=== PATIENT | female | born 1965 | race Caucasian/White ===

== ENCOUNTER 2016-10-07 05:18 | Inpatient (IN) | payer BC ==
[2016-10-06 09:05] VITALS: BMI 24.2
[~2016-10-07] VITALS: Ht 157.5 cm; Wt 60.0 kg
[2016-10-07] VITALS (21 sets, daily range): BP systolic 98–146; BP diastolic 57–88; PULSE 66–100; RESP 12–20; Ht 157.5 cm; Wt 60.0 kg
[~2016-10-07 05:18] MED LIST: ASPI81TA3 PO; DOXY100T20 PO; ESTR1PAT88 TOP; HYDR-3612 PO; OXYC-183; PROG100C5 PO; RIZA5TAB30 PO
[2016-10-07] MEDS ORDERED: DEXAMETHASONE 1 MG TAB PO SCH (06:00)
[2016-10-07] MEDS ORDERED: BUPIVACAINE 0.5% (SDV) 30 ML, morphine SULFATE (PF) 8 MG, EPINEPHrine 0.3 MG, KETOROLAC... IRR SCH ×7 (06:00)
[2016-10-07] MEDS ORDERED: traMADol 50 MG TAB PO SCH (06:00)
[2016-10-07] MEDS ORDERED: SOD CHLORIDE 0.9% 100 ML, TRANEXAMIC ACID 3,000 MG IRR SCH ×2 (06:00)
[2016-10-07] MEDS ORDERED: TRANEXAMIC ACID 1,000 MG in SOD CHLORIDE 0.9% 100 ML IVPB SCH (06:00)
[2016-10-07] MEDS ORDERED: CEFAZOLIN 2 GM/50 ML (PMX) 50 ML IVPB SCH (06:00)
[2016-10-07] MEDS ORDERED: GABAPENTIN 300 MG CAP PO SCH ×2 (06:00→21:00)
[2016-10-07] MEDS ORDERED: TOPI25CA PO (06:17)
[2016-10-07] MEDS ORDERED: THROMBIN 5000 UNIT VIAL ONE (06:38)
[2016-10-07] MEDS ORDERED: POLYMYXIN/BACITRACIN 1L IRRIG ONE (06:38)
[2016-10-07] MEDS ORDERED: CA CHLORIDE 10% 10 ML SYRINGE ONE (06:38)
[2016-10-07] MEDS ORDERED: LACTATED RINGER'S 1,000 ML IV* SCH (06:45)
--- NOTE | 2016-10-07 06:54 | HPN ---
Date/Time of Note Date/Time of Note DATE: 10/07/16 TIME: 06:54 Interval H&P Admission Note Pt. seen H&P reviewed: No system changes MARLYN GABRIEL MD Oct 07, 2016 06:54
[2016-10-07] MEDS ORDERED: GLYCOPYRROLATE 0.4 MG INJ ONE (06:57)
[2016-10-07] MEDS ORDERED: MIDAZOLAM 1 MG/ML 2 ML INJ ONE (06:57)
[2016-10-07] MEDS ORDERED: ONDANSETRON 4 MG INJ ONE (06:57)
[2016-10-07] MEDS ORDERED: DEXAMETHASONE 4 MG/ML 1 ML INJ ONE (06:57)
[2016-10-07] MEDS ORDERED: PROPOFOL 20 ML ONE (06:57)
[2016-10-07] MEDS ORDERED: FENTAnyl 50 MCG/ML VIAL ONE (06:57)
[2016-10-07] MEDS ORDERED: CEFAZOLIN 1 GM INJ ONE (06:57)
[2016-10-07] MEDS ORDERED: NEOSTIGMINE 3 MG/3 ML SYRINGE ONE (06:57)
[2016-10-07] MEDS ORDERED: ROCURONIUM 50 MG INJ ONE (06:57)
[2016-10-07] MEDS ORDERED: morphine SULFATE/PF (10 MG/10 ML) INJ ONE (06:58)
[2016-10-07] MEDS ORDERED: LABETALOL HCL 20MG INJ IV PRN (08:00)
[2016-10-07] MEDS ORDERED: ZOLPIDEM 5 MG TAB PO PRN ×2 (08:00→09:00)
[2016-10-07] MEDS ORDERED: EPHEDrine SULFATE 50 MG/5 ML SYG IV PRN (08:00)
[2016-10-07] MEDS ORDERED: hydrALAzine 20 MG INJ IV PRN (08:00)
[2016-10-07] MEDS ORDERED: NALBUPHINE HCL (10 MG/1 ML) INJ IV PRN (08:00)
[2016-10-07] MEDS ORDERED: NALOXONE (0.4 MG/ML) INJ IV PRN (08:00)
[2016-10-07] MEDS ORDERED: morphine (1 MG/ML) 10ML SYRINGE IV PRN ×3 (08:00)
[2016-10-07] MEDS ORDERED: morphine 2 MG INJ IV PRN ×2 (08:00→09:00)
[2016-10-07] MEDS ORDERED: MIDAZOLAM 1 MG/ML 2 ML INJ IV PRN (08:00)
[2016-10-07] MEDS ORDERED: DIPHENHYDRAMINE 50 MG INJ IV PRN ×3 (08:00→09:00)
[2016-10-07] MEDS ORDERED: TRIMETHOBENZAMIDE 100 MG/ML VIAL IM PRN ×2 (08:00)
[2016-10-07] MEDS ORDERED: morphine 4 MG/ML VIAL IV PRN ×2 (08:00→09:00)
[2016-10-07] MEDS ORDERED: OXYCODONE/ACETAMINOPHEN (5/325) TAB PO PRN ×3 (08:00→09:00)
[2016-10-07] MEDS ORDERED: MEPERIDINE 25 MG INJ IV PRN (08:00)
[2016-10-07] MEDS ORDERED: ONDANSETRON 4 MG INJ IV PRN ×2 (08:00→09:00)
[2016-10-07] MEDS ORDERED: FENTAnyl 50 MCG/ML VIAL IV PRN ×3 (08:00)
[2016-10-07] MEDS ORDERED: PROPOFOL 100 ML ONE (08:01)
[2016-10-07] MEDS ORDERED: ETOMIDATE 20 MG INJ ONE (08:01)
[2016-10-07] MEDS ORDERED: BETHANECHOL 25 MG TAB PO PRN (09:00)
[2016-10-07] MEDS ORDERED: TOPIRAMATE SPRINKLE 25 MG CAP PO SCH (09:00)
[2016-10-07] MEDS ORDERED: ACETAMINOPHEN 500 MG TAB PO PRN (09:00)
[2016-10-07] MEDS ORDERED: MAGNESIUM HYDROXIDE 30ML CUP PO PRN (09:00)
[2016-10-07] MEDS ORDERED: KETOROLAC 15 MG INJ IV PRN (09:00)
--- NOTE | 2016-10-07 09:02 | OPR ---
Date/Time of Note Date/Time of Note DATE: 10/07/16 TIME: 08:57 Operative Report Procedure Date: Oct 07, 2016 Preoperative Diagnosis Right hip primary arthritis Postoperative Diagnosis Right hip primary arthritis Operation Performed Right total hip arthroplasty Surgeon: MARLYN GABRIEL MD Foil Spinner: TAL FLORES MD Anesthesia: general Estimated Blood Loss: 150 - 200 ml's Complications: None Pt Condition Post Procedure: stable Disposition: PACU Procedure Description MATH PROFESSOR SURGEON: Dr. Flores was asked to be present at my request as a result of the significant surgical complexity associated with this procedure including positioning of the extremity, manipulation and protection of the neurovascular structures. In my opinion, the assistance offered by a certified surgical first assistant is insufficient and Dr. Flores should be compensated for her time. PROCEDURE IN DETAIL: Following the administration of general anesthesia supplemented with a spinal, the patient was placed in the supine position. A Cowan catheter was placed sterilely. The bilateral lower extremities then prepped and draped in the usual sterile fashion. A longitudinal incision was then made over the tensor the tensor was incised and retracted laterally. The anterior capsule was then exposed and a capsulectomy was then performed. Severe arthritic changes were noted throughout. A capsulectomy was then performed followed by an osteotomy of the femoral head in the appropriate degree of version and inclination. The acetabulum was then exposed and a capsulectomy was completed. The middle portion of the acetabulum was then reamed and prepared a 49 mm reamer was used as a final reaming. A 50 mm [place] cup was then inserted with very solid fixation. A standard liner was then applied. Attention was then directed to the femur the femur was prepared and serially reamed up to the 8 mm size. An 8 mm [place] stem was then inserted in solid position. A zirconium head was then applied with solid fixation. The hip was then taken through a range of motion and noted to be completely stable. Furthermore, radiographic evaluation compared to the preoperative radiographs that had been obtained revealed essentially equal limb lengths with excellent position of the components and good position of the acetabular component. The wound was thoroughly irrigated closed in layers with a perennial dressing for the final dressing. IBAN hose were applied. The patient was extubated and transported to recovery in stable condition. Estimated blood loss for this procedure was 250 cc. Postoperative x-rays will be obtained as well as a CBC. MARLYN GABRIEL MD Oct 07, 2016 09:02
[2016-10-07] MEDS: CEFAZOLIN 1 GM/50 ML (PMX) 50 ML IVPB SCH ×2 (09:16→17:01)
[2016-10-07] MEDS: LACTATED RINGER'S 1,000 ML IV SCH ×2 (09:16→18:12)
[2016-10-07] MEDS ORDERED: TRANEXAMIC ACID 1,000 MG in SOD CHLORIDE 0.9% 100 ML IV ONE (10:00)
--- NOTE | 2016-10-07 10:01 | RADRPT ---
PROCEDURE: XR Pelvis 1 View. CLINICAL INDICATION: Status post right hip replacement. TECHNIQUE: Single AP view of the pelvis. COMPARISON: August 27, 2015 FINDINGS: I have replacements are identified. Prosthetic components are in appropriate position and alignment . The osseous structures appear intact. No destructive bony lesions are observed. Degenerative ch anges are seen in the lower lumbar spine. Cowan catheter is noted of the lower pelvis. Soft tissue air over the right hip is procedural in nature. IMPRESSION: Bilateral hip replacements. Prosthetic components are in appropriate position alignment. Degenerative changes in the lower lumbar spine. RPTAT: AA .Cecil Graham MD, Date Time Electronically viewed and signed by .Cecil Graham MD, on 10/07/2016 10:01 .P/
[2016-10-07] MEDS: DEXAMETHASONE 2 MG TAB PO SCH ×2 (12:00→17:01)
[2016-10-07] MEDS: ONDANSETRON 4 MG INJ IV PRN ×2 (12:21→18:12)
[2016-10-07 12:35] LABS: ADD SCAN DIFF NO
[2016-10-07 12:38] LABS: ABNORMAL IP MESSAGE 1; BASOPHILS % 0.3 % (0.0-2.0); EOSINOPHILS # 0.1 10^3/ul (0.0-0.5); EOSINOPHILS % 0.5 % (0.0-7.0); HEMATOCRIT 32.9 % (37.0-47.0); HEMOGLOBIN 10.8 g/dl (12.0-16.0); LYMPHOCYTES # 0.6 10^3/ul (0.8-2.9); LYMPHOCYTES % 5.4 % (15.0-51.0); MEAN CORPUSCULAR HEMOGLOBIN 31.2 pg (29.0-33.0); MEAN CORPUSCULAR HGB CONC 32.8 g/dl (32.0-37.0); MEAN CORPUSCULAR VOLUME 95.1 fl (82.0-101.0); MEAN PLATELET VOLUME 10.1 fl (7.4-10.4); MONOCYTE # 0.2 10^3/ul (0.3-0.9); MONOCYTES % 1.8 % (0.0-11.0); NEUTROPHIL # 10.1 10^3/ul (1.6-7.5); NEUTROPHILS % 91.5 % (39.0-77.0); PLATELET COUNT 173 10^3/UL (140-415); RED BLOOD COUNT 3.46 10^6/ul (4.20-5.40); RED CELL DISTRIBUTION WIDTH 13.2 % (11.5-14.5)
--- NOTE | 2016-10-07 13:29 | RADRPT ---
PROCEDURE: Intraoperative imaging of the right hip with fluoroscopy. CLINICAL INDICATION: Right hip pain. Intraoperative. TECHNIQUE: 7 images of the right hip were obtained in the operating room with an image intensifier . No radiologist was in attendance. 0.4 minutes of fluoroscopy time was used. COMPARISON: 08/27/2015. FINDINGS: Images demonstrate placement of a total right hip arthroplasty. IMPRESSION: 1. Satisfactory intraoperative imaging of the right hip. RPTAT: QQ .Diallo Aviles MD, MD Date Time Electronically viewed and signed by .Diallo Aviles MD, on 10/07/2016 13:28 .R/
[2016-10-07] MEDS ORDERED: SUMATRIPTAN 50 MG TAB PO PRN (13:30)
--- NOTE | 2016-10-07 13:37 | PDOCDIS ---
Discharge Instructions DIAGNOSIS Discharge Diagnosis Right hip primary arthritis CONDITION Patient Condition: Good HOME CARE INSTRUCTIONS: Diet Instructions: Regular ACTIVITY: Activity Restrictions: Slowly Increase Activity Keep Limb Elevated Bathing Restrictions: Shower FOLLOW UP/APPOINTMENTS Follow-up Plan 2 weeks postoperatively SCHOOL/WORK RELEASE May return to School/Work with: With Restrictions School/Work Release Comment: No hip extension for 6 weeks MARLYN GABRIEL MD Oct 07, 2016 13:37
[2016-10-07] MEDS ORDERED: PROGESTERONE 100 MG CAP PO SCH (21:00)
[2016-10-07] MEDS: TOPIRAMATE SPRINKLE 25 MG CAP PO SCH (21:20)
[2016-10-07] MEDS: SENNA/DOCUSATE NA (8.6MG/50MG) TAB PO SCH (21:20)
[2016-10-08] MEDS: DEXAMETHASONE 2 MG TAB PO SCH ×2 (01:00→06:12)
[2016-10-08] MEDS: ONDANSETRON 4 MG INJ IV PRN (01:00)
[2016-10-08] MEDS: CEFAZOLIN 1 GM/50 ML (PMX) 50 ML IVPB SCH (01:00)
[2016-10-08 04:57] LABS: ADD SCAN DIFF NO
[2016-10-08 04:59] LABS: BASOPHILS % 0.2 % (0.0-2.0); EOSINOPHILS # 0.2 10^3/ul (0.0-0.5); EOSINOPHILS % 2.6 % (0.0-7.0); HEMOGLOBIN 9.5 g/dl (12.0-16.0); LYMPHOCYTES # 1.3 10^3/ul (0.8-2.9); MEAN CORPUSCULAR HEMOGLOBIN 32.2 pg (29.0-33.0); MEAN CORPUSCULAR HGB CONC 33.9 g/dl (32.0-37.0); MEAN CORPUSCULAR VOLUME 94.9 fl (82.0-101.0); MEAN PLATELET VOLUME 10.4 fl (7.4-10.4); MONOCYTE # 0.7 10^3/ul (0.3-0.9); MONOCYTES % 8.6 % (0.0-11.0); NEUTROPHIL # 6.3 10^3/ul (1.6-7.5); NEUTROPHILS % 73.1 % (39.0-77.0); PLATELET COUNT 148 10^3/UL (140-415); RED BLOOD COUNT 2.95 10^6/ul (4.20-5.40); RED CELL DISTRIBUTION WIDTH 13.2 % (11.5-14.5); WHITE BLOOD COUNT 8.6 10^3/ul (4.8-10.8)
[2016-10-08] MEDS: LACTATED RINGER'S 1,000 ML IV SCH (06:12)
--- NOTE | 2016-10-08 06:47 | PN ---
Date/Time of Note Date/Time of Note DATE: 10/08/16 TIME: 06:46 24 hour Interval Summary Patient is awake and alert with no pain at this point. She is doing very well. Physical Exam Physical examination of the right lower extremity reveals no signs of DVT. There is minimal edema at the wound site. The wound is clean and dry. She is neurologically intact. Vital Signs Date Time Temp Pulse Resp B/P Pulse Ox O2 Delivery O2 Flow Rate FiO2 10/07/16 19:05 97.0 71 18 111/73 98 10/07/16 14:00 Room Air Intake and Output 10/07/16 10/07/16 10/08/16 15:00 23:00 07:00 Intake Total 3000 ml 750 ml 480 ml Output Total 630 ml 600 ml Balance 2370 ml 150 ml 480 ml VTE Prophylaxis VTE Prophylaxis Intervention: anti-embolic stocking Lines/Catheters IV Catheter Type: Saline Lock Cowan in Place: No Results Result Diagram: 10/08/16 0429 Results 24hrs Laboratory Tests Test 10/07/16 12:19 10/08/16 04:29 10/08/16 05:34 White Blood Count 11.0 H 8.6 # Red Blood Count 3.46 L 2.95 L Hemoglobin 10.8 L 9.5 L Hematocrit 32.9 L 28.0 L Mean Corpuscular Volume 95.1 94.9 Mean Corpuscular Hemoglobin 31.2 32.2 Mean Corpuscular Hemoglobin Concent 32.8 33.9 Red Cell Distribution Width 13.2 13.2 Platelet Count 173 148 Mean Platelet Volume 10.1 10.4 Neutrophils % 91.5 H 73.1 Lymphocytes % 5.4 L 15.0 Monocytes % 1.8 8.6 Eosinophils % 0.5 2.6 Basophils % 0.3 0.2 Neutrophils # 10.1 H 6.3 Lymphocytes # 0.6 L 1.3 Monocytes # 0.2 L 0.7 Eosinophils # 0.1 0.2 Basophils # 0.0 0.0 Nucleated Red Blood Cells # 0.0 0.0 Lab Scanned Report LAB Assessment/Plan Assessment/Plan She will begin physical therapy this morning. Following clearance by physical therapy, she will be discharged. Medications Medications Home Meds Reported Medications Topiramate* (Topamax*) 25 Mg Cap.sprink, 50 MG PO BID, CAP 10/07/16 Oxycodone Hcl-Acetaminophen* (Oxycodone Hcl-Acetaminophen*) 10-325 Mg Tablet, # 60 08/27/15 Progesterone,Micronized* (Progesterone*) 100 Mg Capsule, 100 MG PO QHS, #90 08/27/15 Estradiol (Estradiol) 1 Each Patch.tdsw, 1 PATCH TOP Q 4 DAYS, #8 08/27/15 Doxycycline Hyclate* (Doxycycline Hyclate*) 100 Mg Tablet.dr, 100 MG PO BID, #10 08/27/15 Rizatriptan Benzoate (Maxalt) 5 Mg Tablet, 5 MG PO DAILY 07/17/13 Discontinued Reported Medications Hydrocodone Bit-Acetaminophen* ([place]*) 1 Tab Tab, 1 TAB PO Q6NARC Y for MILD PAIN LEVEL 1-3, TAB 07/17/13 Discontinued Scripts Aspirin (Aspirin) 81 Mg Chew, 81 MG PO DAILY for 14 Days, TAB Prov:MARLYN GABRIEL MD 08/28/15 MARLYN GABRIEL MD Oct 08, 2016 06:47
--- NOTE | 2016-10-08 06:48 | DS ---
Date/Time of Note Date/Time of Note DATE: 10/08/16 TIME: 06:47 Discharge Summary Admission/Discharge Info Admit Date/Time Oct 07, 2016 at 05:18 Discharge Date/Time October 08, 2016 following clearance by physical therapy department. Discharge Diagnosis Right hip primary arthritis Patient Condition: Good Procedures Right total hip arthroplasty Hx of Present Illness Pain and stiffness in the right hip. Hospital Course Patient was admitted and underwent an uncomplicated total hip replacement. Postop day #1 she was discharged afebrile, and clinically stable. To be followed up in the office in 2 weeks. Home Meds Reported Medications Topiramate* (Topamax*) 25 Mg Cap.sprink, 50 MG PO BID, CAP 10/07/16 Oxycodone Hcl-Acetaminophen* (Oxycodone Hcl-Acetaminophen*) 10-325 Mg Tablet, # 60 08/27/15 Progesterone,Micronized* (Progesterone*) 100 Mg Capsule, 100 MG PO QHS, #90 08/27/15 Estradiol (Estradiol) 1 Each Patch.tdsw, 1 PATCH TOP Q 4 DAYS, #8 08/27/15 Doxycycline Hyclate* (Doxycycline Hyclate*) 100 Mg Tablet.dr, 100 MG PO BID, #10 08/27/15 Rizatriptan Benzoate (Maxalt) 5 Mg Tablet, 5 MG PO DAILY 07/17/13 Discontinued Reported Medications Hydrocodone Bit-Acetaminophen* ([place]*) 1 Tab Tab, 1 TAB PO Q6NARC Y for MILD PAIN LEVEL 1-3, TAB 07/17/13 Discontinued Scripts Aspirin (Aspirin) 81 Mg Chew, 81 MG PO DAILY for 14 Days, TAB Prov:MARLYN GABRIEL MD 08/28/15 Primary Care Provider Not On Staff Doctor Pending Labs Laboratory Tests Test 10/07/16 12:19 10/08/16 04:29 10/08/16 05:34 White Blood Count 11.010^3/ul (4.8-10.8) 8.610^3/ul (4.8-10.8) Red Blood Count 3.4610^6/ul (4.20-5.40) 2.9510^6/ul (4.20-5.40) Hemoglobin 10.8g/dl (12.0-16.0) 9.5g/dl (12.0-16.0) Hematocrit 32.9% (37.0-47.0) 28.0% (37.0-47.0) Mean Corpuscular Volume 95.1fl (82.0-101.0) 94.9fl (82.0-101.0) Mean Corpuscular Hemoglobin 31.2pg (29.0-33.0) 32.2pg (29.0-33.0) Mean Corpuscular Hemoglobin Concent 32.8g/dl (32.0-37.0) 33.9g/dl (32.0-37.0) Red Cell Distribution Width 13.2% (11.5-14.5) 13.2% (11.5-14.5) Platelet Count 24117^3/UL (140-415) 79020^3/UL (140-415) Mean Platelet Volume 10.1fl (7.4-10.4) 10.4fl (7.4-10.4) Neutrophils % 91.5% (39.0-77.0) 73.1% (39.0-77.0) Lymphocytes % 5.4% (15.0-51.0) 15.0% (15.0-51.0) Monocytes % 1.8% (0.0-11.0) 8.6% (0.0-11.0) Eosinophils % 0.5% (0.0-7.0) 2.6% (0.0-7.0) Basophils % 0.3% (0.0-2.0) 0.2% (0.0-2.0) Neutrophils # 10.110^3/ul (1.6-7.5) 6.310^3/ul (1.6-7.5) Lymphocytes # 0.610^3/ul (0.8-2.9) 1.310^3/ul (0.8-2.9) Monocytes # 0.210^3/ul (0.3-0.9) 0.710^3/ul (0.3-0.9) Eosinophils # 0.110^3/ul (0.0-0.5) 0.210^3/ul (0.0-0.5) Basophils # 0.010^3/ul (0.0-0.1) 0.010^3/ul (0.0-0.1) Nucleated Red Blood Cells # 0.010^3/ul (0.0-0.0) 0.010^3/ul (0.0-0.0) Lab Scanned Report [id number] MARLYN GABRIEL MD Oct 08, 2016 06:48
[2016-10-08 07:47] VITALS: BP 117/72; RESP 20
[2016-10-08] MEDS: SENNA/DOCUSATE NA (8.6MG/50MG) TAB PO SCH (08:53)
[2016-10-08] MEDS: TOPIRAMATE SPRINKLE 25 MG CAP PO SCH (09:00)
[2016-10-08] MEDS ORDERED: ASPIRIN 81 MG TAB PO SCH (09:00)
[2016-10-08] MEDS: OXYCODONE/ACETAMINOPHEN (5/325) TAB PO PRN ×2 (10:27→15:04)
[2016-10-08 11:16] LABS: ADD UMIC NO; UR ASCORBIC ACID NEGATIVE (NEGATIVE); UR BILIRUBIN (Dip) NEGATIVE (NEGATIVE); UR BLOOD (Dip) NEGATIVE (NEGATIVE); UR CLARITY CLEAR (CLEAR); UR COLOR STRAW (YELLOW); UR GLUCOSE (Dip) NEGATIVE (NEGATIVE); UR KETONES (Dip) NEGATIVE (NEGATIVE); UR LEUKOCYTE ESTERASE (Dip) NEGATIVE Leu/ul (NEGATIVE); UR NITRITE (Dip) NEGATIVE (NEGATIVE); UR SPECIFIC GRAVITY (Dip) 1.005 (1.003-1.030); UR TOTAL PROTEIN (Dip) NEGATIVE (NEGATIVE); UR UROBILINOGEN (Dip) NEGATIVE (NEGATIVE)
== END 2016-10-08 17:15 | disposition home health service (06) | DRG 470 ==
LOC: REC 05:18 → MS1 10:08
PROVIDERS: ADMIT Orthopaedic Surgery; ATTEND Orthopaedic Surgery
PROC: 0SR904A Replacement of Right Hip Joint with Ceramic on Polyethylene Synthetic Substitute, Uncemented, Open Approach (ICD-10-PCS; principal; 2016-10-07 07:00)
DX: M16.11 Unilateral primary osteoarthritis, right hip (principal); G43.909 Migraine, unspecified, not intractable, without status migrainosus
CPT/HCPCS: 72170; 73530; 81003; 85025; 86999; 87086; 88304; 88311; 97110; 97116; 97162; 97530; C1776; J0171; J0690; J0735; J1100; J1885; J2250; J2274; J2405; J2710; J3010; J3370; J7120